=== PATIENT | female | born 1995 | race Caucasian/White ===

== ENCOUNTER 2018-04-02 16:38 | Emergency (ER) | payer MEDICAID ==
[2018-04-02] MEDS ORDERED: Ondansetron 4 MG Tab.DIS PO ONE (17:21)
[2018-04-02] MEDS ORDERED: cefTRIAXone 1,000 MG in Lidocaine 1% 4 ML IM ONE (17:50)
[2018-04-02] MEDS ORDERED: Ciprofloxacin 500 MG Tab PO ONE (17:50)
[2018-04-02] MEDS ORDERED: Phenazopyridine 200 MG Tab PO ONE (17:52)
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
[2018-04-02 18:28] VITALS: BP 97/62
== END 2018-04-02 18:26 | disposition home or self-care (01) ==
LOC: MW.ED 16:38 → EEVIPCON 16:38 → MW.ED 18:26
DX: N10 Acute pyelonephritis (principal)
CPT/HCPCS: 81001; 81025; 87086; 87088; 87186; 96372; 99284; A9270; J0696; J2001

== ENCOUNTER 2020-09-05 09:32 | Emergency (ER) | payer MEDICAID ==
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
[2020-09-05 11:44] LABS: BLOOD UREA NITROGEN,BUN 5 mg/dL (7.0-18.0); CARBON DIOXIDE,CO2 24.8 mmol/L (21.0-32.0); CHLORIDE,CL 104 mmol/L (98-107); GLUCOSE RANDOM 91 mg/dL (74-106); POTASSIUM,K 3.4 mmol/L (3.5-5.1); SODIUM,NA 138 mmol/L (136-145)
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
[2020-09-05 12:12] VITALS: BP 113/59; PULSE 73
== END 2020-09-05 12:15 | disposition home or self-care (01) ==
LOC: MW.ED 09:32
DX: O9A.211 Injury, poisoning and certain other consequences of external causes complicating pregnancy, first trimester (principal); S10.93XA Contusion of unspecified part of neck, initial encounter; Z3A.01 Less than 8 weeks gestation of pregnancy; Y04.0XXA Assault by unarmed brawl or fight, initial encounter
CPT/HCPCS: 36415; 76801; 76801-26; 80048; 81003; 81025; 84702; 85025; 86900; 86901; 99284; 99284-25

== ENCOUNTER 2020-11-28 19:31 | Emergency (ER) | payer MEDICAID ==
[2020-11-28] MEDS ORDERED: Sodium Chloride 0.9% 10 ML Syringe FLUSH PRN (20:18)
[2020-11-28] MEDS ORDERED: Sodium Chloride 0.9% 2.5 ML Syringe FLUSH PRN (20:18)
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
[2020-11-28 21:16] LABS: BLOOD UREA NITROGEN,BUN 8 mg/dL (7.0-18.0); CARBON DIOXIDE,CO2 25.6 mmol/L (21.0-32.0); CHLORIDE,CL 101 mmol/L (98-107); GLUCOSE RANDOM 76 mg/dL (74-106); POTASSIUM,K 3.7 mmol/L (3.5-5.1); SODIUM,NA 138 mmol/L (136-145)
[2020-11-28 21:39] VITALS: BP 103/65; PULSE 78
--- NOTE | 2020-11-28 21:59 | US ---
INDICATION: Cramping. Leaking fluid TECHNIQUE: Limited transabdominal and transvaginal obstetrical ultrasound. COMPARISON: None available FINDINGS: A single live intrauterine gestation is seen in variable presentation. Estimated gestational age based on biparietal diameter, head circumference, abdominal circumference and femur length is 19 weeks and 6 days. There is cardiac activity with a heart rate of 150 BPM. anatomy is not evaluated. The placenta is anterior. The internal cervical os is clear of placental tissue. The cervix measures 3.3 cm. There is apparent tiny fluid in the endocervical canal. The amniotic fluid single deepest pocket measures 5.2 cm with an GASTON of 13.2 cm. Neither ovary is visualized. Tiny fluid posterior to the cervix may be free or could be related to adjacent bowel. IMPRESSION: A single live intrauterine gestation at 19 weeks and 6 days by sonographic measurements. anatomy is not evaluated. Correlate with a full anatomical survey. Amniotic fluid single deepest pocket of 5.2 cm and an GASTON of 13.2 cm. Apparent tiny fluid within the endocervical canal. The cervix is otherwise closed, measuring 3.3 cm. Nonvisualization of the ovaries. Dictated by Alexandre Miramontes MD @ Nov 28 2020 9:49PM Signed by Dr. Alexandre Miramontes @ Nov 28 2020 9:57PM
--- NOTE | 2020-12-01 10:14 | US ---
EXAM DATE: 11/28/20 PATIENT'S AGE: 25 Patient: MCKAYLA BALDERAS Facility: [facility] Site . Site : [id number] Study: US-OB Pelvis -11/28/2020 9:49:06 PM Ordering Physician: Sanford Parry Final Report: INDICATION: Cramping. Leaking fluid TECHNIQUE: Limited transabdominal and transvaginal obstetrical ultrasound. COMPARISON: None available FINDINGS: A single live intrauterine gestation is seen in variable presentation. Estimated gestational age based on biparietal diameter, head circumference, abdominal circumference and femur length is 19 weeks and 6 days. There is cardiac activity with a heart rate of 150 BPM. anatomy is not evaluated. The placenta is anterior. The internal cervical os is clear of placental tissue. The cervix measures 3.3 cm. There is apparent tiny fluid in the endocervical canal. The amniotic fluid single deepest pocket measures 5.2 cm with an GASTON of 13.2 cm. Neither ovary is visualized. Tiny fluid posterior to the cervix may be free or could be related to adjacent bowel. IMPRESSION: A single live intrauterine gestation at 19 weeks and 6 days by sonographic measurements. anatomy is not evaluated. Correlate with a full anatomical survey. Amniotic fluid single deepest pocket of 5.2 cm and an GASTON of 13.2 cm. Apparent tiny fluid within the endocervical canal. The cervix is otherwise closed, measuring 3.3 cm. Nonvisualization of the ovaries. Dictated by Alexandre Miramontes MD @ Nov 28 2020 9:49PM Signed by: Alexandre Miramontes MD @11/28/2020 9:57:21 PM (Electronic Signature) Report Signed by Proxy. [facility]
== END 2020-11-29 01:47 | disposition home or self-care (01) ==
LOC: MW.ED 19:31
DX: O99.891 Other specified diseases and conditions complicating pregnancy (principal); N89.8 Other specified noninflammatory disorders of vagina; Z3A.19 19 weeks gestation of pregnancy
CPT/HCPCS: 36415; 76815; 76815-26; 76817; 76817-26; 80053; 81001; 84112; 85025; 87480; 87510; 87660; 99284-25

== ENCOUNTER 2021-04-17 00:14 | Inpatient (IN) | payer MEDICAID ==
[2021-04-17] MEDS ORDERED: Sodium Chloride 0.9% 2.5 ML Syringe FLUSH PRN (01:12)
[2021-04-17] MEDS ORDERED: Sodium Chloride 0.9% 10 ML Syringe FLUSH PRN (01:12)
[2021-04-17] MEDS ORDERED: Misoprostol 200 MCG Tab PO PRN (01:12)
[2021-04-17] MEDS ORDERED: Water For Irrigation,Sterile 1,000 ML Container IRR PRN (01:12)
[2021-04-17] MEDS ORDERED: Misoprostol 25 MCG (1/4 of 100 MCG) Tab VAG PRN (01:12)
[2021-04-17] MEDS ORDERED: Butorphanol 1 MG/ML SDV IVPUSH PRN (01:12)
[2021-04-17] MEDS ORDERED: Carboprost Tromethamine 250 MCG/1 ML Amp IM PRN (01:12)
[2021-04-17] MEDS ORDERED: Sodium Chloride 0.9% 10 ML SDV IV PRN (01:12)
[2021-04-17] MEDS ORDERED: Nalbuphine 10 MG/1 ML Vial IVPUSH PRN (01:12)
[2021-04-17] MEDS ORDERED: Tranexamic Acid 1,000 MG in Sodium Chloride 0.9% 100 ML IV PRN (01:12)
[2021-04-17] MEDS ORDERED: Ampicillin 2 GM in Sodium Chloride 0.9% 100 ML IV ONE (01:12)
[2021-04-17] MEDS ORDERED: Terbutaline 1 MG/ML SDV SUBCUT PRN (01:12)
[2021-04-17] MEDS ORDERED: Lidocaine 1% 50 ML MDV INJECT PRN (01:12)
[2021-04-17] MEDS ORDERED: Methylergonovine 0.2 MG/1 ML Amp IM PRN (01:12)
[2021-04-17] MEDS ORDERED: Oxytocin/0.9 % Sodium Chloride 30 UNIT/500 ML BAG IV SCH ×2 (01:15)
[2021-04-17] MEDS ORDERED: Lactated Ringers 1,000 ML IV SCH (01:15)
[2021-04-17] MEDS ORDERED: Ampicillin 2 GM Vial ONE (01:23)
[2021-04-17] MEDS ORDERED: Misoprostol 25 MCG (1/4 of 100 MCG) Tab ONE (01:24)
[2021-04-17] MEDS ORDERED: Misoprostol 25 MCG (1/4 of 100 MCG) Tab PO ONE ×2 (01:34→05:26)
[2021-04-17] MEDS: Misoprostol 25 MCG (1/4 of 100 MCG) Tab VAG PRN ×2 (01:41→05:52)
[2021-04-17] MEDS: Ampicillin 1 GM in Sodium Chloride 0.9% 50 ML IV SCH ×2 (05:51→09:43)
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
[2021-04-17] MEDS ORDERED: Witch Hazel Medicated Pads 40/Jar TOP PRN (10:11)
[2021-04-17] MEDS ORDERED: Acetaminophen 500 MG Tab PO PRN ×2 (10:11)
[2021-04-17] MEDS ORDERED: Lanolin 100% Cream 7 GM Tube TOP PRN (10:11)
[2021-04-17] MEDS ORDERED: Ibuprofen 400 MG Tab PO PRN (10:11)
[2021-04-17] MEDS ORDERED: Bisacodyl 10 MG Supp RECTAL PRN (10:11)
[2021-04-17] MEDS ORDERED: Benzocaine/Menthol 20%-0.5% Spray 78 GM Cannister TOP PRN (10:11)
[2021-04-17] MEDS ORDERED: Docusate Sodium 100 MG Cap PO PRN (10:11)
[2021-04-17] MEDS ORDERED: oxyCODONE 5 MG Tab PO PRN (10:11)
[2021-04-17] MEDS: Ibuprofen 800 MG Tab PO PRN ×2 (10:57→16:52)
--- NOTE | 2021-04-17 13:46 | OR ---
SURGEON: Roger Ocasio MD DATE OF PROCEDURE: 04/17/2021 Ms. Werner is 26 years old. She is para 1-0-2-2. She is followed by our nurse midwifery service. She is 39 plus weeks. She is admitted for social induction. The patient is induced with Cytotec, in which she responded to it very well. Initially, she hovered around 3 cm and then moved rather fast. She went from 3 to 7 to complete, and delivery attended by the nurse. When I arrived to Labor and delivery, the fetus was already delivered and was crying, and the cord was still attached to the placenta. So, I went ahead and clamped the cord and severed it, and score later on reported for the baby is 8 and 9. The placenta delivered spontaneous, complete, and intact without any problem. There was no laceration. Episiotomy was not needed. heart rate was category 1 through the entire process of labor. There was no complication in the labor and delivery process of this patient. AKHIL / AYLA /[id number]
[2021-04-18] MEDS: Ibuprofen 800 MG Tab PO PRN ×2 (01:37→08:51)
[2021-04-18 09:26] VITALS: BP 111/60; PULSE 76
--- NOTE | 2021-04-18 10:55 | PCM.PNPP ---
- General Info Date of Service: 04/18/21 Functional Status: Reports: Pain Controlled - Review of Systems General: Reports: No Symptoms HEENT: Reports: No Symptoms Pulmonary: Reports: No Symptoms Cardiovascular: Reports: No Symptoms Gastrointestinal: Reports: No Symptoms Genitourinary: Reports: No Symptoms Musculoskeletal: Reports: No Symptoms Skin: Reports: No Symptoms Neurological: Reports: No Symptoms Psychiatric: Reports: No Symptoms - General Info Date of Service: 04/18/21 - Patient Data Vital Signs - Most Recent: Last Vital Signs Temp 36.3 C 04/18/21 08:00 Pulse 76 04/18/21 08:00 Resp 18 04/18/21 08:00 BP 111/60 04/18/21 08:00 Pulse Ox 98 04/18/21 08:00 Weight - Most Recent: 86.18 kg Lab Results - Last 24 Hours: Laboratory Results - last 24 hr 04/18/21 Range/Units 05:55 Hgb 6.7 L (12.0-16.0) g/dL Hct 23.8 L (36.0-46.0) % Med Orders - Current: Current Medications Acetaminophen (Acetaminophen 500 Mg Tab) 500 mg PO Q4H PRN PRN Reason: Pain (mild 1-3) Acetaminophen (Acetaminophen 500 Mg Tab) 1,000 mg PO Q4H PRN PRN Reason: Pain (mild 1-3) Benzocaine/Menthol (Benzocaine/Menthol 20%-0.5% [place] 78 Gm Cannister) 78 gm TOP ASDIRECTED PRN PRN Reason: Perineal Comfort Measure Last Admin: 04/17/21 12:24 Dose: 1 canister Documented by: Bisacodyl (Bisacodyl 10 Mg Supp) 10 mg RECTAL ONETIME PRN PRN Reason: Constipation Docusate Sodium (Docusate Sodium 100 Mg Cap) 100 mg PO Q12H PRN PRN Reason: Constipation Emollient Ointment (Lanolin 100% Cream 7 Gm Tube) 0 gm TOP ASDIRECTED PRN PRN Reason: Sore Nipples Last Admin: 04/17/21 12:25 Dose: 7 g Documented by: Ibuprofen (Ibuprofen 400 Mg Tab) 400 mg PO Q4H PRN PRN Reason: Pain (mild 1-3) Ibuprofen (Ibuprofen 800 Mg Tab) 800 mg PO Q6H PRN PRN Reason: Pain (mild 1-3) Last Admin: 04/18/21 08:51 Dose: 800 mg Documented by: Oxycodone HCl (Oxycodone 5 Mg Tab) 5 mg PO Q2H PRN PRN Reason: Pain (severe 7-10) Sodium Chloride (Sodium Chloride 0.9% 10 Ml Syringe) 10 ml FLUSH ASDIRECTED PRN PRN Reason: Keep Vein Open Sodium Chloride (Sodium Chloride 0.9% 2.5 Ml Syringe) 2.5 ml FLUSH ASDIRECTED PRN PRN Reason: Keep Vein Open Sodium Chloride (Sodium Chloride 0.9% 10 Ml Sdv) 10 ml IV ASDIRECTED PRN PRN Reason: IV Use Witch Heena (Witch Heena Medicated Pads 40/Jar) 1 pad TOP ASDIRECTED PRN PRN Reason: comfort care Last Admin: 04/17/21 12:24 Dose: 1 tub Documented by: Discontinued Medications Ampicillin Sodium (Ampicillin 2 Gm Vial) Confirm Administered Dose 2 gm .ROUTE .STK-MED ONE Stop: 04/17/21 01:24 Last Admin: 04/17/21 01:35 Dose: 2 gm Documented by: Butorphanol Tartrate (Butorphanol 1 Mg/Ml Sdv) 1 mg IVPUSH Q1H PRN PRN Reason: Pain (severe 7-10) Carboprost Tromethamine (Carboprost Tromethamine 250 Mcg/1 Ml Amp) 250 mcg IM ASDIRECTED PRN PRN Reason: Post Hemorrhage Oxytocin/Sodium Chloride (Oxytocin 30 Unit/500 Ml-Ns) 30 unit in 500 mls @ 2 mls/hr IV TITRATE [facility]; Protocol Lactated Ringer's (Ringers, Lactated) 1,000 mls @ 150 mls/hr IV ASDIRECTED ASMITA Last Infusion: 04/17/21 10:10 Dose: Infused Documented by: Oxytocin/Sodium Chloride (Oxytocin 30 Unit/500 Ml-Ns) 30 unit in 500 mls @ 999 mls/hr IV TITRATE ASMITA Last Infusion: 04/17/21 10:25 Dose: 500 mls/hr Documented by: Tranexamic Acid 1,000 mg/ (Sodium Chloride) 110 mls @ 660 mls/hr IV ONETIME PRN PRN Reason: Bleeding Ampicillin Sodium 2 gm/ Sodium (Chloride) 100 mls @ 200 mls/hr IV ONETIME ONE Stop: 04/17/21 01:41 Last Admin: 04/17/21 01:42 Dose: 200 mls/hr Documented by: Ampicillin Sodium 1 gm/ Sodium (Chloride) 50 mls @ 100 mls/hr IV Q4H ASMITA Last Admin: 04/17/21 09:43 Dose: 100 mls/hr Documented by: Lidocaine HCl (Lidocaine 1% 50 Ml Mdv) 50 ml INJECT ONETIME PRN PRN Reason: Laceration repair Methylergonovine Maleate (Methylergonovine 0.2 Mg/1 Ml Amp) 0.2 mg IM ASDIRECTED PRN PRN Reason: Post Hemorrhage Misoprostol (Misoprostol 25 Mcg (1/4 Of 100 Mcg) Tab) Confirm Administered Dose 50 mcg .ROUTE .STK-MED ONE Stop: 04/17/21 01:25 Misoprostol (Misoprostol 25 Mcg (1/4 Of 100 Mcg) Tab) 25 mcg VAG ONETIME PRN PRN Reason: Cervical Ripening Last Admin: 04/17/21 05:52 Dose: 25 mcg Documented by: Misoprostol (Misoprostol 25 Mcg (1/4 Of 100 Mcg) Tab) 25 mcg VAG Q4H PRN PRN Reason: Cervical Ripening Misoprostol (Misoprostol 200 Mcg Tab) 200 mcg PO ONETIME PRN PRN Reason: Post Hemorrhage Misoprostol (Misoprostol 25 Mcg (1/4 Of 100 Mcg) Tab) 25 mcg PO ONETIME ONE Stop: 04/17/21 01:35 Last Admin: 04/17/21 01:41 Dose: 25 mcg Documented by: Misoprostol (Misoprostol 25 Mcg (1/4 Of 100 Mcg) Tab) 25 mcg PO ONETIME ONE Stop: 04/17/21 05:27 Last Admin: 04/17/21 05:52 Dose: 25 mcg Documented by: Nalbuphine HCl (Nalbuphine 10 Mg/1 Ml Vial) 10 mg IVPUSH Q1H PRN PRN Reason: Pain (severe 7-10) Sterile Water (Water For Irrigation,Sterile 1,000 Ml Container) 1,000 ml IRR ASDIRECTED PRN PRN Reason: delivery Terbutaline Sulfate (Terbutaline 1 Mg/Ml Sdv) 0.25 mg SUBCUT ASDIRECTED PRN PRN Reason: Tacysystole - Interaction Infant Disposition, : [place] in Room with Family Infant Interaction: Holding Infant Feeding: Attempted ; Nursed Fair/Poor Support Person: Significant Other, Other (see below) - Recovery Exam Fundal Tone: Firm Fundal Level: At Umbilicus Fundal Placement: Midline Lochia Amount: Scant Lochia Color: Rubra/Red Perineum Description: Intact, Minimal Bruising/Swelling Episiotomy/Laceration: None Bladder Status: Voiding Urinary Elimination: Voided - Exam General: Alert, Oriented HEENT: Pupils Equal Neck: Supple Lungs: Clear to Auscultation, Normal Respiratory Effort Cardiovascular: Regular Rate, Regular Rhythm GI/Abdominal Exam: Normal Bowel Sounds, Soft, Non-Tender, No Organomegaly, No Distention, No Abnormal Bruit, No Mass, Pelvis Stable Extremities: Normal Inspection, Normal Range of Motion, Non-Tender, No Pedal Edema, Normal Capillary Refill Skin: Warm, Dry, Intact Wound/Incisions: Healing Well Neurological: No New Focal Deficit Psy/Mental Status: Alert, Normal Affect, Normal Mood - Problem List Review Problem List Initiated/Reviewed/Updated: Yes - My Orders Last 24 Hours: My Active Orders 04/17/21 10:11 Acetaminophen [Tylenol Extra Strength] 1,000 mg PO Q4H PRN Acetaminophen [Tylenol Extra Strength] 500 mg PO Q4H PRN Benzocaine/Menthol [Dermoplast Pain Relief 20%-0.5% [place]] 78 gm TOP ASDIRECTED PRN Docusate Sodium [Colace] 100 mg PO Q12H PRN Ibuprofen [Motrin] 400 mg PO Q4H PRN Ibuprofen [Motrin] 800 mg PO Q6H PRN Lanolin [Lansinoh HPA] See Dose Instructions TOP ASDIRECTED PRN bisacodyL [Dulcolax] 10 mg RECTAL ONETIME PRN oxyCODONE 5 mg PO Q2H PRN witch Heena [Tucks] 1 pad TOP ASDIRECTED PRN 04/17/21 10:12 Patient Status [ADT] Routine May Shower [RC] ASDIRECTED Up ad Shantal [RC] ASDIRECTED Vital Signs [RC] PER UNIT ROUTINE Assess Lochia [WOMSER] Per Unit Routine Assess Uterine Involution [WOMSER] Per Unit Routine Peripheral IV Discontinue [OM.PC] Routine 04/17/21 Lunch Regular Diet [DIET] - Assessment Assessment:: Doing well . going home. - Plan Plan:: Admit A: presenting to L&D for elective induction of labor at 39 weeks (HANNAH: 04/24/21 by first trimester ultrasound). O+, Rubella immune, GBS positive. NKDA. complicated by anemia and Pica. Supplementing with ferrous sulfate 325 mg TID; Pica has been improving. Chlamydia infection early in ; SILVIA on 12/01/20 was negative; 36 re-screen on 03/23/21 was also negative. Vertex by Irene PYLE per nurse report: 3cm/80%/-2, firm, anterior P: Anticipate ; cytotec to pitocin PRN; epidural PRN; Dr. Ocasio updated.
== END 2021-04-18 14:04 | disposition home or self-care (01) | DRG 807 ==
LOC: MW.OB 00:14 → MW.OBCHECK 00:14 → MW.OB 01:12 → MW.OBCHECK 01:12 → OBSVTOIN 10:12 → MW.OB 12:37
PROVIDERS: ADMIT Obstetrics & Gynecology; ATTEND Obstetrics & Gynecology
PROC: 10E0XZZ Delivery of Products of Conception, External Approach (ICD-10-PCS; principal; 2021-04-17)
PROC: 10907ZC Drainage of Amniotic Fluid, Therapeutic from Products of Conception, Via Natural or Artificial Opening (ICD-10-PCS; 2021-04-17)
PROC: 3E0P7VZ Introduction of Hormone into Female Reproductive, Via Natural or Artificial Opening (ICD-10-PCS; 2021-04-17)
PROC: 3E0R3BZ Introduction of Anesthetic Agent into Spinal Canal, Percutaneous Approach (ICD-10-PCS; 2021-04-17)
DX: O99.824 Streptococcus B carrier state complicating childbirth (principal); Z37.0 Single live birth; Z3A.39 39 weeks gestation of pregnancy; O99.02 Anemia complicating childbirth; D64.9 Anemia, unspecified
CPT/HCPCS: 36415; 59025; 59409; 85014; 85018; 85027; 86592; 86850; 86900; 86901; A9270-GY; J0290; J2590; J7120

== ENCOUNTER 2021-11-21 14:37 | Emergency (ER) | payer MEDICAID ==
[2021-11-21] MEDS ORDERED: Sodium Chloride 0.9% 1,000 ML IV ONE (15:10)
[2021-11-21 15:57] LABS: BLOOD UREA NITROGEN,BUN 6 mg/dL (7.0-18.0); CHLORIDE,CL 102 mmol/L (98-107); GLUCOSE RANDOM 100 mg/dL (74-106); POTASSIUM,K 2.9 mmol/L (3.5-5.1); SODIUM,NA 140 mmol/L (136-145)
[2021-11-21] MEDS ORDERED: Potassium Chloride 20 MEQ Tab.ER PO ONE (16:08)
[2021-11-21 16:59] VITALS: BP 121/67; PULSE 79
== END 2021-11-21 16:48 | disposition home or self-care (01) ==
LOC: MW.ED 14:37
DX: O20.0 Threatened abortion (principal); O99.011 Anemia complicating pregnancy, first trimester; O99.281 Endocrine, nutritional and metabolic diseases complicating pregnancy, first trimester; E87.6 Hypokalemia; Z3A.01 Less than 8 weeks gestation of pregnancy
CPT/HCPCS: 36415; 76817; 80053; 81001; 84702; 85025; 86900; 86901; 99284; A9270; J7030

== ENCOUNTER 2022-11-01 11:44 | Inpatient (IN) | payer MEDICAID ==
[2022-11-01] MEDS ORDERED: Ibuprofen 800 MG Tab ONE (12:04)
[2022-11-01] MEDS ORDERED: Sodium Chloride 0.9% 2.5 ML Syringe FLUSH PRN (12:39)
[2022-11-01] MEDS ORDERED: Lidocaine 1% 50 ML MDV INJECT PRN (12:39)
[2022-11-01] MEDS ORDERED: Tranexamic Acid 1,000 MG in Sodium Chloride 0.9% 100 ML IV PRN (12:39)
[2022-11-01] MEDS ORDERED: Methylergonovine 0.2 MG/1 ML Amp IM PRN (12:39)
[2022-11-01] MEDS ORDERED: Carboprost Tromethamine 250 MCG/1 ML Amp IM PRN (12:39)
[2022-11-01] MEDS ORDERED: Water For Irrigation,Sterile 1,000 ML Container IRR PRN (12:39)
[2022-11-01] MEDS ORDERED: Butorphanol 1 MG/ML SDV IVPUSH PRN (12:39)
[2022-11-01] MEDS ORDERED: Sodium Chloride 0.9% 20 ML SDV IV PRN (12:39)
[2022-11-01] MEDS ORDERED: Sodium Chloride 0.9% 10 ML Syringe FLUSH PRN (12:39)
[2022-11-01] MEDS ORDERED: Misoprostol 200 MCG Tab PO PRN (12:39)
[2022-11-01] MEDS ORDERED: Lactated Ringers 1,000 ML IV SCH (12:45)
[2022-11-01] MEDS ORDERED: Oxytocin/0.9 % Sodium Chloride 30 UNIT/500 ML BAG IV SCH (12:45)
[2022-11-01] MEDS ORDERED: Witch Hazel Medicated Pads 40/Jar TOP PRN (13:08)
[2022-11-01] MEDS ORDERED: Acetaminophen 500 MG Tab PO PRN (13:08)
[2022-11-01] MEDS ORDERED: Docusate Sodium 100 MG Cap PO PRN (13:08)
[2022-11-01] MEDS ORDERED: Lanolin 100% Cream 7 GM Tube TOP PRN (13:08)
[2022-11-01] MEDS ORDERED: Ibuprofen 400 MG Tab PO PRN (13:08)
[2022-11-01] MEDS ORDERED: Benzocaine/Menthol 20%-0.5% Spray 78 GM Cannister TOP PRN (13:08)
[2022-11-01] MEDS ORDERED: Bisacodyl 10 MG Supp RECTAL PRN (13:08)
[2022-11-01] MEDS ORDERED: Ibuprofen 800 MG Tab PO PRN (13:08)
[2022-11-01] MEDS: Acetaminophen 500 MG Tab PO PRN ×2 (16:44→23:34)
[2022-11-03 08:03] VITALS: BP 134/87; PULSE 68
[2022-11-03] MEDS: Acetaminophen 500 MG Tab PO PRN (08:23)
== END 2022-11-03 12:26 | disposition home or self-care (01) | DRG 807 ==
LOC: MW.OBCHECK 11:44 → MW.OB 11:49 → OBSVTOIN 11:49 → MW.OB 11:49 → MW.OBCHECK 11:50 → MW.OB 13:45
PROVIDERS: ADMIT Obstetrics & Gynecology; ATTEND Obstetrics & Gynecology Obstetrics
PROC: 10E0XZZ Delivery of Products of Conception, External Approach (ICD-10-PCS; principal; 2022-11-01)
PROC: 30233N1 Transfusion of Nonautologous Red Blood Cells into Peripheral Vein, Percutaneous Approach (ICD-10-PCS; 2022-11-01)
DX: O99.824 Streptococcus B carrier state complicating childbirth (principal); Z37.0 Single live birth; Z3A.38 38 weeks gestation of pregnancy; O99.324 Drug use complicating childbirth; F12.90 Cannabis use, unspecified, uncomplicated; O99.02 Anemia complicating childbirth; D64.9 Anemia, unspecified
CPT/HCPCS: 36415; 36430; 80305-QW; 85014; 85018; 85027; 86592; 86850; 86900; 86901; 86920; A9270-GY; P9016; U0002